=== PATIENT | female | born 1985 | race Caucasian/White ===

== ENCOUNTER 2017-01-14 17:04 | Emergency (ER) | payer SELFPAY ==
[2017-01-14 17:23] VITALS: BP 127/79
[2017-01-14] MEDS ORDERED: LORazepam 1 MG TABLET PO ONE (17:54)
--- NOTE | 2017-01-14 17:56 | ERNOTE ---
Psychological HPI - General Chief Complaint: Anxiety Source: Reports: patient Exam Limitations: Reports: no limitations - Immun/Allergies/Home Medications Allergies/Adverse Reactions: Allergies latex Allergy (Mild, Verified 01/14/17 17:23) Hives penicillin G Allergy (Mild, Verified 01/14/17 17:23) Hives tramadol Allergy (Mild, Verified 01/14/17 17:23) Hives Home Medications: HOME MEDICATIONS Buspirone HCl 10 mg PO ONCE 01/14/17 [Last Taken Unknown] HYDROcodone/ACETAMINOPHEN [Hydrocodon-Acetaminophn 10-325] 1 tab PO Q6H PRN 10/23 [Last Taken Unknown] LORazepam [Ativan] 0.5 mg PO BID #30 tablet 01/14/17 [Last Taken Unknown] - History of Present Illness Narrative: Patient has known underlying anxiety disorder with depression and was started on BuSpar 10 mg. She states that while the BuSpar is helping a depression component it appears to be making the anxiety component worse, and she is not able to sleep or focus because of the near panic attack. She states these are chronic and is looking for some sort of help with the anxiety portion of this. Time Seen by Provider: 01/14/17 17:26 Arrived by: Reports: private car Onset/duration: Reports: constant Intent: Reports: no prior thoughts-suicide Review of Systems - Review of Systems Constitutional: Present: See HPI EYE: Present: no symptoms reported ENT: Present: no symptoms reported Respiratory: Present: no symptoms reported Cardiology: Present: no symptoms reported Gastrointestinal/Abdominal: Present: no symptoms reported Genitourinary: Present: no symptoms reported Musculoskeletal: Present: no symptoms reported Skin: Present: no symptoms reported Neurological: Present: no symptoms reported Endocrine: Present: no symptoms reported Hematologic/Lymphatic: Present: no symptoms reported Psych: Present: anxiety - Patient's Past Medical History Patient History - Medical: Anxiety, Depression Patient History - Cardiac/Respiratory: No pertinent hx Patient History - Cancer: No Hx of Cancer Patient History - Surgical Procedures: Appendectomy, Tubal Ligation, T & A Patient History - Other: None LMP (females 10-50): now - Social History Living Situations: home Abuse History: No History of abuse Psych History: Hx of Anxiety, Hx of Depression, Current tx/ever been on anti- depressants or anti-anxiety meds - Immunizations Immunizations Up to Date: Yes Hx Pneumococcal Vaccination: No History of Influenza Vaccine: No Psychological Exam - Exam General Appearance: Present: wd/wn, alert, mild distress Head Exam: Present: normal inspection, no evidence of injury Neurological: Present: alert, anxious Thoughts/Hallucinations: Present: normal thought pattern, no apparent hallucination Behavior/Eye Contact/Speech: Present: increased rate of speech ENT Exam normal except (see below): Yes Ears, Nose, Throat: Present: normal ENT inspection Neck: Present: normal inspection, nontender Respiratory: Present: no respiratory distress, normal breath sounds, no accessory muscle use Cardiovascular/Chest: Present: regular rate, rhythm, no murmur Gastrointestinal/Abdominal: Present: normal bowel sounds, nontender Rectal Exam: Present: deferred Pelvic Exam: Present: deferred Back Exam: Present: normal inspection, normal range of motion Extremity Exam: Present: normal inspection, non-tender Skin Exam: Present: normal color, warm/dry Lymphatic Exam: Present: no adenopathy ED Progress - Vital Signs Patient's Vital Signs:: I have reviewed the patient's vital signs. Vital Signs: Vital Signs 01/14/17 17:19 Temperature 36.8 C Pulse Rate 87 Respiratory 18 Rate Blood Pressure 127/79 O2 Sat by Pulse 98 Oximetry - Progress/Reassessment Chief Complaint: Anxiety Plan - Plan Plan: By all outward appearances the Reneapar appears to have unmasked a fairly substantial anxiety disorder. As the patient states that she is not sleeping well and is having intermittent panic attacks patient will need to be treated with a benzodiazepine and referral will be made to psychiatric services. Departure Clinical Impression: Panic attacks - Departure Disposition: Home self-care Condition: Good Instructions: Panic Attacks, [id number] Referrals: Carolyn Deng DO [Primary Care Provider] - Jacobo Rubin MD [Staff Physician] - Prescriptions: LORazepam [Ativan] 0.5 mg PO BID #30 tablet
[2017-01-14] MEDS ORDERED: LORazepam 1 MG TABLET ONE (17:59)
== END 2017-01-14 18:05 | disposition home or self-care (01) ==
LOC: ER 17:04
DX: F41.0 Panic disorder [episodic paroxysmal anxiety] (principal); F32.9 Major depressive disorder, single episode, unspecified

== ENCOUNTER 2017-04-14 07:47 | Emergency (ER) | payer MEDICAID ==
[2017-04-14 08:00] VITALS: BP 136/78
--- NOTE | 2017-04-14 08:15 | ERNOTE ---
Headache ER HPI - Narrative Date of Service: 04/14/17 - General Presenting Symptoms: headache Time Seen by Provider: 04/14/17 08:03 Source: patient Exam Limitations: no limitations - Immun/Allergies/Home Medications Immunizations: IMMUNIZATION HX Immunizations Up to Date Yes History of Influenza Vaccine Yes Hx Pneumococcal Vaccination No Allergies/Adverse Reactions: Allergies latex Allergy (Mild, Verified 04/14/17 08:00) Hives penicillin G Allergy (Mild, Verified 04/14/17 08:00) Hives tramadol Allergy (Mild, Verified 04/14/17 08:00) Hives Home Medications: HOME MEDICATIONS LORazepam [Ativan] 0.5 mg PO BID #30 tablet 01/14/17 [Last Taken Unknown] - History of Present Illness Narrative: Patient presents to the ED for headache. She tells me she has been having these headaches for the last 2 months. Gets them twice per month. Left side of her head, throbbing and fullness. She gets migraine HAs but the pain of these HAs feel different, not as severe as the migraines but more persistent. No fever. No CP, NO SOB. No focal N/T/W. No acute vision changes, she did have some blurry vision yesterday but none now. LINDSAY mild now. Activity at onset: other - none Timing of Headache: intermittent, other - for 2 months Context Headache: Absent: CO exposure, meningitis exposure, recent head injury < 24 hrs ago Quality: Present: pressure, throbbing Severity-Currently: Present: mild Headache frequency: Present: frequent headaches Modifying Factors - (Improves): Reports: other - nothing Modifying Factors - (Worsens): Reports: other - nothing Associated Symptoms: Denies: fever/chills, nausea, vomiting, nasal congestion, facial pain, weakness, numbness/tingling, light-headedness, loss of consciousness, seizures, neck pain/stiffness, speech problems Exacerbated by:: Reports: other - nothing Prior Treament: Denies: recently seen Review of Systems - Review of Systems Constitutional: Absent: fever EYE: Present: see HPI ENT: Absent: sore throat Respiratory: Absent: shortness of breath Cardiology: Absent: chest pain Gastrointestinal/Abdominal: Absent: nausea, vomiting, abdominal pain Genitourinary: Absent: dysuria Musculoskeletal: Present: no symptoms reported Skin: Absent: rash Neurological: Absent: weakness - Patient's Past Medical History Patient History - Medical: Anxiety, Depression, Migraines Patient History - Cardiac/Respiratory: No pertinent hx Patient History - Cancer: No Hx of Cancer Patient History - Surgical Procedures: Appendectomy, Tubal Ligation, T & A Patient History - Other: None LMP (females 10-50): 1 month - Social History Living Situations: other Abuse History: No History of abuse Psych History: Hx of Anxiety, Hx of Depression, Current tx/ever been on anti- depressants or anti-anxiety meds Smoking Status: Current every day smoker Have you smoked in the past 12 months: Yes Do you dip or chew tobacco: No Alcohol Use: rarely Drug Use: none - Immunizations Immunizations Up to Date: Yes Hx Pneumococcal Vaccination: No History of Influenza Vaccine: Yes Physical Exam - Physical Exam General Appearance: Present: alert, no apparent distress Head Exam: Present: normal inspection, no evidence of injury Eye Exam: Normal inspection: bilateral, PERRL: bilateral Ears, Nose, Throat: Present: normal ENT inspection Neck: Present: normal inspection Respiratory: Present: no respiratory distress, normal breath sounds, no accessory muscle use, lungs clear Cardiovascular/Chest: Present: regular rate, rhythm, normal peripheral pulses Gastrointestinal/Abdominal: Present: normal bowel sounds, nontender, nondistended, soft Back Exam: Present: normal range of motion Extremity Exam: Present: normal inspection, normal range of motion Neurological Exam: Present: alert, oriented, normal mood/affect, no motor/ sensory deficits, guest services representative II-XII nml as tested, normal cerebellar test, other - NIH - 0. Absent: facial droop, motor weakness Skin Exam: Present: normal color, warm/dry ED Progress - Results and Orders Patient's Lab Results:: I have reviewed the patient's lab results. - Vital Signs Patient's Vital Signs:: I have reviewed the patient's vital signs. Vital Signs: Vital Signs 04/14/17 07:57 Temperature 37.3 C Pulse Rate 81 Respiratory 14 Rate Blood Pressure 136/78 O2 Sat by Pulse 100 Oximetry - CT/Ultrasound CT/Ultrasound Narrative: I reviewed official radiology CT report, head CT - Progress/Reassessment Chief Complaint: Headache Progress Note-Subjective: 04/14/17 09:04 negative HCT. CO level consistent with her 1/2 PPD tobacco. No suggestion of meningitis, SAH, ICH or other clear acute life threat. Not worst LINDSAY of life and not thunderclap. No temporal artery tenderness and no clinical evidence of temoral arteritis. 04/14/17 09:06 She feels like going home, I discussed warning signs and reasons to return as well as the need for close f/u. Departure Clinical Impression: Headache - Departure Disposition: Home self-care Condition: Stable Additional Instructions: Rest. Fluids. Follow-up with your doctor in 2-3 days for a re-check. Purchase a home carbon monoxide detector if there is any concern. Return for increased pain, fever, numbness, tingling, weakness or if your condition worsens or changes in any way.
[2017-04-14 08:34] LABS: Methemoglobin % 0.4 % (0.41-1.15)
[2017-04-14 08:35] LABS: Carboxyhemoglobin % 2.6 % (0.5-1.5)
[2017-04-14] MEDS ORDERED: KETOROLAC TROMETHAMINE 30 MG/ML VIAL IM ONE (08:36)
[2017-04-14] MEDS ORDERED: KETOROLAC TROMETHAMINE 30 MG/ML VIAL ONE (08:40)
== END 2017-04-14 09:20 | disposition home or self-care (01) ==
LOC: ER 07:47
DX: F17.200 Nicotine dependence, unspecified, uncomplicated; R51 Headache; F41.9 Anxiety disorder, unspecified